=== PATIENT | male | born 1995 | race Caucasian/White ===

== ENCOUNTER 2017-10-25 08:25 | Outpatient (CLI) | payer OTHER ==
--- NOTE | 2017-10-25 12:24 | MRI ---
MRI BRAIN WITH AND WITHOUT CONTRAST: Technique: Multiplanar, multisequential imaging of the brain obtained. Post contrast imaging obtained after administration of 15 cc of MultiHance IV. History: Seizure disorder. FINDINGS: Ventricles have normal size and position. No evidence of restricted diffusion. There is no evidence o f mass or edema. No white matter abnormality. Hippocampal formations appear normal and symmetric. No abnormal enhancement identified. The cerebral arteries show flow voids. Paranasal sinuses and mastoid s appear clear. IMPRESSION: Unremarkable MRI of brain. POS: [facility]
[2017-10-25] MEDS ORDERED: Gadobenate Dimeglumine 529 MG/1 ML (20ML VIAL) ONE (13:59)
== END 2017-10-25 08:26 | disposition home or self-care (01) ==
LOC: EEG 08:25
PROVIDERS: ATTEND Psychiatry & Neurology Neurology
DX: G40.309 Generalized idiopathic epilepsy and epileptic syndromes, not intractable, without status epilepticus (principal)
CPT/HCPCS: 70553; 95816; A9579

== ENCOUNTER 2018-01-13 17:59 | Emergency (ER) | payer OTHER ==
[2018-01-13] MEDS ORDERED: levETIRAcetam 500 MG TAB PO SCH (18:45)
== END 2018-01-13 19:19 | disposition home or self-care (01) ==
LOC: ERS 17:59
DX: G40.909 Epilepsy, unspecified, not intractable, without status epilepticus (principal); F41.9 Anxiety disorder, unspecified; F32.9 Major depressive disorder, single episode, unspecified
CPT/HCPCS: 36416; 99284